=== PATIENT | female | born 1955 | race Caucasian/White ===

== ENCOUNTER 2018-10-14 19:40 | Emergency (ER) | payer BC, MEDICARE ==
[2018-10-14] MEDS ORDERED: Diphtheria,Pertussis(Acell),Tetanus Vaccine 0.5 ML Syringe IM ONE (20:02)
--- NOTE | 2018-10-14 20:10 | EDM.PDOC ---
ED HPI GENERAL MEDICAL PROBLEM - General Chief Complaint: Upper Extremity Injury/Pain Stated Complaint: PUT STAPLE THRU POINTER FINGER ON LEFT HAND Time Seen by Provider: 10/14/18 20:00 Source of Information: Reports: Patient History Limitations: Reports: No Limitations - History of Present Illness INITIAL COMMENTS - FREE TEXT/NARRATIVE: 63-year-old female presents for a laceration to her left hand second finger. Patient reports she is at work and put a staple through the distal end of her pointer finger. She removed the staple but feels that there is still a piece and it. She has a laceration through the distal tip of her finger. She reports that is numb at this time. she is unsure of her last tetanus. She is right-handed. Onset: Today Location: Reports: Upper Extremity, Left - Related Data Allergies Allergy/AdvReac Type Severity Reaction Status Date / Time No Known Allergies Allergy Verified 10/14/18 19:47 Home Meds: Home Meds Acetaminophen/HYDROcodone [Henderson 325-5 MG] 1 tab PO Q6H PRN #12 tablet 10/14/18 [Rx] Cephalexin [Keflex] 500 mg PO TID #21 capsule 10/14/18 [Rx] Pravastatin [Pravachol] 20 mg PO DAILY 10/14/18 [History] Past Medical History Cardiovascular History: Reports: High Cholesterol - Past Surgical History Musculoskeletal Surgical History: Reports: Other (See Below) Other Musculoskeletal Surgeries/Procedures:: ankle surgery, elbow surgery Social & Family History - Tobacco Use Smoking Status *Q: Never Smoker Second Hand Smoke Exposure: No - Caffeine Use Caffeine Use: Reports: Coffee - Recreational Drug Use Recreational Drug Use: No Review of Systems - Review of Systems Review Of Systems: See Below Musculoskeletal: Reports: Hand Pain Skin: Reports: Wound (right hand 2nd finger distal finger tip) Neurological: Reports: Numbness (right hand 2nd finger, distal finger tip) ED EXAM, GENERAL - Physical Exam Exam: See Below Exam Limited By: No Limitations General Appearance: Alert, WD/WN, No Apparent Distress Respiratory/Chest: No Respiratory Distress Cardiovascular: Normal Peripheral Pulses Peripheral Pulses: 2+: Radial (R) Extremities: Normal Capillary Refill, Other (1.5cm laceration to the right hand distal second finger underneath the distal nail ) Neurological: Alert, Oriented, Normal Cognition ED TRAUMA EXTREMITY PROCEDURES - Laceration/Wound Repair Right Distal Digit - 2nd (Index) Lac/Wound Length In cm: 1.5 Appearance: Subcutaneous, Linear, Clean Distal NVT: No Tendon Injury, Other (reports decreased sensation to light touch to) Anesthetic Type: Digital Local Anesthesia - Lidocaine (Xylocaine): 1% Plain Local Anesthesia - Bupivicaine (Marcaine): 0.5% Plain Local Anesthetic Volume: 5cc Skin Prep: Chlorhexidine (Hibiciens), Isopropyl Alcohol (Alcohol), Saline, Sterile Drape Closed With: Sutures Suture Size: 4-0 # of Sutures: 4 Suture Type: Nylon, Interrupted, Simple Sterile Dressing Applied: Nurse Tetanus Status Addressed: Yes Complications: No - Splinting Right 2nd Digit Splint Site: right hand distal 2nd finger Pre-Procedure NV Status: Normal Post-Procedure NV Status: Normal Splint Material: Aluminum-Foam Splint Design: Other (finger splint) Applied & Form Fitted By: Nurse Provider Post-Splint Application NV Check: NV Status Normal, Good Position Complications: No Course - Vital Signs Last Recorded V/S: Last Vital Signs Temp 98 F 10/14/18 19:45 Pulse 93 10/14/18 19:45 Resp 16 10/14/18 19:45 BP 173/114 H 10/14/18 19:45 Pulse Ox 95 10/14/18 19:45 - Orders/Labs/Meds Orders: Active Orders 24 hr Category Date Time Status Vaccines to be Administered [RC] PER UNIT ROUTINE Care 10/14/18 20:03 Active Meds: Medications Discontinued Medications Generic Name Dose Route Start Last Admin Trade Name Freq PRN Reason Stop Dose Admin Bupivacaine HCl 10 ml 10/14/18 21:49 10/14/18 23:00 Sensorcaine-Mpf 0.5% INJECT 10/14/18 21:50 10 ml ONETIME ONE Administration Cefazolin Sodium 1 gm 10/14/18 21:49 10/14/18 23:00 Ancef IM 10/14/18 21:50 1 gm ONETIME ONE Administration Diphtheria/Tetanus/Acell Pertussis 0.5 ml 10/14/18 20:02 10/14/18 20:17 Adacel IM 10/14/18 20:03 0.5 ml .ONCE ONE Administration Lidocaine HCl 50 ml 10/14/18 21:49 10/14/18 23:00 Xylocaine 1% INJECT 10/14/18 21:50 50 ml ONETIME ONE Administration - Radiology Interpretation Free Text/Narrative:: xray of the right hand 2nd finger shows a distal tuft fracture - Re-Assessments/Exams Free Text/Narrative Re-Assessment/Exam: 10/14/18 23:05 4 sutures placed to the right hand distal 2nd finger. Patient tolerated well. Will give ancef in ER and start on cephalexin as this is an open fracture. Recommend follow-up with [facility] as ortho will be out of town for the next week and this injury occurred at work. Will discharge home today. Discharge instructions as documented. Departure - Departure Time of Disposition: 23:09 Disposition: Home, Self-Care 01 Condition: Fair Clinical Impression: Laceration - Discharge Information *PRESCRIPTION DRUG MONITORING PROGRAM REVIEWED*: No *COPY OF PRESCRIPTION DRUG MONITORING REPORT IN PATIENT VI: No Prescriptions: Acetaminophen/HYDROcodone [Henderson 325-5 MG] 1 tab PO Q6H PRN #12 tablet PRN Reason: Pain Cephalexin [Keflex] 500 mg PO TID #21 capsule Instructions: Laceration Care, Adult, [id number] Referrals: Nguyen Schaffer PA [Primary Care Provider] - Shay Kim MD [Physician] - Forms: ED Department Discharge Additional Instructions: keep the finger splints on at all times. May remove for dressing changes and to monitor finger. monitor the finger for signs of infection such as increased swelilng, pus or redness. Present to clinic or the ER should these develop. Keflex as prescribed. 1 tab 3 times a day for 7 days. ice the finger frequently, 3 or 4 times a day for about 10 minutes. May take [id number] ibuprofen as needed for pain. For pain not relieved by probing may take Henderson one tablet every 6 hours. Henderson is habit-forming, take as few these as needed to control your pain. Do not drive or operate machinery within 10 hours of taking Henderson. Have the sutures removed in 10 days. The [facility] and is open 8 AM to 5 PM Friday to Friday and can remove the sutures for free. Call [phone] schedule the provider there. Dr. Julio loyd may also remove these for you. Recommend follow-up with Dr. Julio loyd on Friday. Call [phone] to schedule with him. Please return to the ER if your symptoms change or worsen. - My Orders Last 24 Hours: My Active Orders 10/14/18 20:03 Vaccines to be Administered [RC] PER UNIT ROUTINE - Assessment/Plan Last 24 Hours: My Active Orders 10/14/18 20:03 Vaccines to be Administered [RC] PER UNIT ROUTINE
[2018-10-14] MEDS ORDERED: Bupivacaine 0.5% 10 ML SDV INJECT ONE (21:49)
[2018-10-14] MEDS ORDERED: ceFAZolin 1 GM Vial IM ONE (21:49)
[2018-10-14] MEDS ORDERED: Lidocaine 1% 50 ML MDV INJECT ONE (21:49)
--- NOTE | 2018-10-15 08:30 | CR ---
Left second finger: Four views centered to the left second finger were obtained. Comparison: No previous study. Small distal tuft fracture is seen. Margins of the bone fragment are somewhat sclerotic and uncertain if this is old or acute. Mild joint space narrowing noted within the DIP joint. Soft tissue swelling is present. Impression: 1. Small distal tuft fracture off the distal second finger. Uncertain if this is old or acute. 2. Mild degenerative change and mild soft tissue swelling. Diagnostic code #3
== END 2018-10-14 23:25 | disposition home or self-care (01) ==
LOC: JD.ED 19:40
DX: S61.210A Laceration without foreign body of right index finger without damage to nail, initial encounter (principal); Z23 Encounter for immunization; E78.00 Pure hypercholesterolemia, unspecified; Z79.899 Other long term (current) drug therapy; W45.8XXA Other foreign body or object entering through skin, initial encounter
CPT/HCPCS: 12001; 73140; 90471; 90700; 99283; J0690; J2001; J3490

== ENCOUNTER 2019-10-09 16:31 | Emergency (ER) | payer MEDICARE, BC ==
--- NOTE | 2019-10-09 17:36 | EDM.PDOC ---
ED HPI GENERAL MEDICAL PROBLEM - General Chief Complaint: Lower Extremity Injury/Pain Stated Complaint: R LEG PAIN Time Seen by Provider: 10/09/19 16:52 Source of Information: Reports: Patient History Limitations: Reports: No Limitations - History of Present Illness INITIAL COMMENTS - FREE TEXT/NARRATIVE: The patient presents with right lower leg swelling and pain. This stared yesterday. She denies any injury. She has no history of DVT or PE. She has no fever, chills, cough, congestion, runny nose, chest pain, shortness of breath , abdominal pain, nausea or vomiting. Onset: Gradual Duration: Day(s): Location: Reports: Lower Extremity, Right (calf) Quality: Reports: Ache Severity: Mild Improves with: Reports: None Worsens with: Reports: None Associated Symptoms: Reports: No Other Symptoms Right Lower Leg Pain Score (Numeric/FACES): 8 - Related Data Allergies Allergy/AdvReac Type Severity Reaction Status Date / Time No Known Allergies Allergy Verified 10/09/19 16:46 Home Meds: Home Meds Pravastatin [Pravachol] 20 mg PO DAILY 10/14/18 [History] Past Medical History Cardiovascular History: Reports: High Cholesterol - Past Surgical History Musculoskeletal Surgical History: Reports: Other (See Below) Other Musculoskeletal Surgeries/Procedures:: ankle surgery, elbow surgery Social & Family History - Tobacco Use Smoking Status *Q: Never Smoker - Caffeine Use Caffeine Use: Reports: Coffee - Recreational Drug Use Recreational Drug Use: No Review of Systems - Review of Systems Review Of Systems: See Below Constitutional: Reports: No Symptoms Eyes: Reports: No Symptoms Ears: Reports: No Symptoms Nose: Reports: No Symptoms Mouth/Throat: Reports: No Symptoms Respiratory: Reports: No Symptoms Cardiovascular: Reports: No Symptoms GI/Abdominal: Reports: No Symptoms Genitourinary: Reports: No Symptoms Musculoskeletal: Reports: Other (Pain and swelling to the right calf) ED EXAM, GENERAL - Physical Exam Exam: See Below Exam Limited By: No Limitations General Appearance: Alert, No Apparent Distress Ears: Normal External Exam Nose: Normal Inspection Head: Atraumatic, Normocephalic Neck: Normal Inspection Respiratory/Chest: No Respiratory Distress, Lungs Clear, Normal Breath Sounds Cardiovascular: Regular Rate, Rhythm, No Edema, No Murmur GI/Abdominal: Soft, Non-Tender, No Organomegaly, No Mass Extremities: Other (Mild pain upon palpation with mild edema to the right calf. Good sensation and pulses distally.) Course - Vital Signs Last Recorded V/S: Last Vital Signs Temp 98.2 F 10/09/19 16:44 Pulse 80 10/09/19 16:44 Resp 16 10/09/19 16:44 BP 163/116 H 10/09/19 16:44 Pulse Ox 96 10/09/19 16:44 - Orders/Labs/Meds Orders: Active Orders 24 hr Category Date Time Status VL Duplex Lwr Ext Veins Ltd Rt [US] Stat Exams 10/09/19 17:09 Ordered - Re-Assessments/Exams Free Text/Narrative Re-Assessment/Exam: 10/09/19 17:36 I ordered an US of her leg. 10/09/19 19:09 Her US looks good. I will discharge her home. Departure - Departure Time of Disposition: 19:15 Disposition: Home, Self-Care 01 Condition: Good Clinical Impression: Right leg pain - Discharge Information *PRESCRIPTION DRUG MONITORING PROGRAM REVIEWED*: Not Applicable *COPY OF PRESCRIPTION DRUG MONITORING REPORT IN PATIENT VI: Not Applicable Referrals: PCP,None [Primary Care Provider] - Forms: ED Department Discharge Additional Instructions: Take motrin or tylenol for pain. Elevate your leg at night when resting. Please return if you are worse. Sepsis Event Note - Evaluation Sepsis Screening Result: No Definite Risk - Focused Exam Vital Signs: Vital Signs Temp Pulse Resp BP Pulse Ox 10/09/19 16:44 98.2 F 80 16 163/116 H 96 Date Exam was Performed: 10/09/19 Time Exam was Performed: 19:09 - My Orders Last 24 Hours: My Active Orders 10/09/19 17:09 VL Duplex Lwr Ext Veins Ltd Rt [US] Stat - Assessment/Plan Last 24 Hours: My Active Orders 10/09/19 17:09 VL Duplex Lwr Ext Veins Ltd Rt [US] Stat
--- NOTE | 2019-10-09 19:23 | US ---
Right lower extremity deep venous ultrasound: Duplex and color Doppler evaluation was obtained of the right common femoral, proximal greater saphenous, superficial femoral, popliteal, posterior tibial and peroneal veins. Additional real-time images were obtained of the proximal calf in area described as painful. Findings: Normal phasic flow, augmentation and compression is seen. No ultrasound finding is seen within the proximal left calf region. Impression: 1. No evidence of deep venous thrombosis. Diagnostic code #1 This report was dictated in MDT
== END 2019-10-09 19:21 | disposition home or self-care (01) ==
LOC: JD.ED 16:31
DX: M79.661 Pain in right lower leg (principal); E78.00 Pure hypercholesterolemia, unspecified; Z79.899 Other long term (current) drug therapy
CPT/HCPCS: 93971-26-RT; 93971-RT; 99282; 99283-25

== ENCOUNTER 2020-06-30 06:57 | Day surgery (SDC) | payer MEDICARE, BC ==
--- NOTE | 2020-06-29 12:08 | PCM.PREANE ---
Preanesthetic Assessment - Procedure Proposed Procedure: Total Vaginal Hysterectomy, bilateral salpingectomy, A/P repair. - Anesthesia/Transfusion/Family Hx Anesthesia History: Prior Anesthesia Without Reaction Family History of Anesthesia Reaction: No Transfusion History: No Prior Transfusion(s) Intubation History: Unknown - Review of Systems General: No Symptoms Pulmonary: No Symptoms (ETOH: rarely) Cardiovascular: No Symptoms (Elevated cholesterol) Gastrointestinal: No Symptoms (GERD-controlled) Neurological: No Symptoms Other: Reports: None - Physical Assessment NPO Status Date: 06/29/20 NPO Status Time: 22:30 Vital Signs: HR:64 Sat:95% Temp:98.5 B/P:140/92 Resp:16 Height: 1.6 m Weight: 74.389 kg ASA Class: 2 Mental Status: Alert & Oriented x3 Airway Class: Mallampati = 2 Dentition: Reports: Normal Dentition, [place](s), Caries Thyro-Mental Finger Breadths: 3 Mouth Opening Finger Breadths: 3 ROM/Head Extension: Full Lungs: Clear to Auscultation, Normal Respiratory Effort Cardiovascular: Regular Rate, Regular Rhythm, No Murmurs - Lab Values: All labs reviewed and noted and within acceptable ranges to proceed with scheduled procedure. - Imaging/EKG Impressions: Echocardiogram: EF= 60-65%, EKG: SR rate= 6i5, left ventricular hypertrophy, LAD, consider left anterior fascicular block - Allergies Allergies/Adverse Reactions: Allergies Allergy/AdvReac Type Severity Reaction Status Date / Time No Known Allergies Allergy Verified 06/29/20 08:31 - Anesthesia Plan Pre-Op Medication Ordered: None - Acknowledgements Anesthesia Type Planned: General Anesthesia Pt an Appropriate Candidate for the Planned Anesthesia: Yes Alternatives and Risks of Anesthesia Discussed w Pt/Guardian: Yes Pt/Guardian Understands and Agrees with Anesthesia Plan: Yes PreAnesthesia Questionnaire HEENT History: Reports: None Cardiovascular History: Reports: High Cholesterol Respiratory History: Reports: None Gastrointestinal History: Reports: Other (See Below) Other Gastrointestinal History: acid reflux, dysphagia Genitourinary History: Reports: Other (See Below) Other Genitourinary History: elevated creatinine, cystocele, rectocele DISEASE EDUCATION SPECIALIST History: Reports: Other (See Below) Other OB/BYN History: postmenopausal, fibrous breast lumps Musculoskeletal History: Reports: Other (See Below) Other Musculoskeletal History: crush elbow injury, right toe pain Neurological History: Reports: None Psychiatric History: Reports: None Endocrine/Metabolic History: Reports: None Hematologic History: Reports: None Immunologic History: Reports: None Oncologic (Cancer) History: Reports: None Dermatologic History: Reports: Other (See Below) Other Dermatologic History: tinea corposis - Infectious Disease History Infectious Disease History: Reports: None - Past Surgical History Head Surgeries/Procedures: Reports: None HEENT Surgical History: Reports: Cataract Surgery Cardiovascular Surgical History: Reports: None Respiratory Surgical History: Reports: None GI Surgical History: Reports: Colonoscopy Female Surgical History: Reports: Breast Biopsy, Tubal Ligation Endocrine Surgical History: Reports: None Neurological Surgical History: Reports: None Musculoskeletal Surgical History: Reports: Other (See Below) Other Musculoskeletal Surgeries/Procedures:: right ankle surgery with hardware, bilateral great toe joint replacement, elbow surgery Dermatological Surgical History: Reports: None - SUBSTANCE USE Tobacco Use Status *Q: Never Tobacco User Recreational Drug Use History: No - HOME MEDS Home Medications: Home Meds Pravastatin [Pravachol] 20 mg PO DAILY 10/14/18 [History] Cholecalciferol (Vitamin D3) [Vitamin D3] 2,000 unit PO DAILY 06/29/20 [History] Multivitamin 1 tab PO DAILY 06/29/20 [History] Multivitamin with Minerals [Hair, Skin and Nails] 1 tab PO DAILY 06/29/20 [History] Omeprazole Magnesium [Prilosec Otc] 20 mg PO DAILY 06/29/20 [History] Ubidecarenone [Coq-10] 200 mg PO DAILY 06/29/20 [History] Vitamin B Complex [B Complex] 2 tab PO DAILY 06/29/20 [History] - CURRENT (IN HOUSE) MEDS Current Meds: Current Medications Lactated Ringer's (Ringers, Lactated) 1,000 mls @ 125 mls/hr IV ASDIRECTED SAEED Lidocaine/Sodium Bicarbonate (Buffered Lidocaine 1% In Ns 8.4%) 0.25 ml IDERM ONETIME PRN PRN Reason: Prior to IV Start Sodium Chloride (Saline Flush) 10 ml FLUSH ASDIRECTED PRN PRN Reason: Keep Vein Open
[~2020-06-30 06:57] MED LIST: Lidocaine 1%/Sod Bicarbonate in NS 8.4% 1 ML Syringe IDERM PRN; Sodium Chloride 0.9% 10 ML Syringe FLUSH PRN
[2020-06-30] MEDS ORDERED: Dexamethasone 4 MG/ML 5 ML MDV ONE (07:09)
[2020-06-30] MEDS ORDERED: Lidocaine 1% 4 ML ONE (07:09)
[2020-06-30] MEDS ORDERED: Lactated Ringers 1,000 ML ONE (07:09)
[2020-06-30] MEDS ORDERED: Rocuronium 50 MG/5 ML Vial ONE (07:09)
[2020-06-30] MEDS ORDERED: HYDROmorphone 0.5 MG/0.5 ML Syringe ONE ×2 (07:09→09:42)
[2020-06-30] MEDS ORDERED: Ondansetron 4 MG/2 ML SDV ONE (07:09)
[2020-06-30] MEDS ORDERED: ceFAZolin 1 GM Vial ONE (07:10)
[2020-06-30] MEDS ORDERED: fentaNYL 250 MCG/5 ML SDV ONE (07:10)
[2020-06-30] MEDS: Lactated Ringers 1,000 ML IV SCH ×2 (07:10→13:25)
[2020-06-30] MEDS ORDERED: Midazolam 1 MG/ML 2 ML SDV ONE (07:10)
[2020-06-30] MEDS ORDERED: Propofol 200 MG/20 ML SDV ONE (07:10)
[2020-06-30] MEDS ORDERED: Sodium Chloride 0.9% 50 ML SDV ONE (07:19)
[2020-06-30] MEDS ORDERED: Lidocaine 1% with EPINEPHrine 1:100,000 10 ML MDV ONE (07:26)
[2020-06-30] MEDS ORDERED: Ondansetron 4 MG/2 ML SDV IVPUSH PRN (08:39)
[2020-06-30] MEDS ORDERED: fentaNYL 100 MCG/2 ML SDV IVPUSH PRN (08:39)
[2020-06-30] MEDS ORDERED: diphenhydrAMINE 50 MG/ML SDV IVPUSH PRN (08:39)
[2020-06-30] MEDS ORDERED: HYDROmorphone 0.5 MG/0.5 ML Syringe IVPUSH PRN (08:39)
[2020-06-30] MEDS ORDERED: Albuterol 0.083% 2.5 MG/3 ML Neb Soln NEB PRN (08:39)
[2020-06-30] MEDS ORDERED: ePHEDrine 50 MG/ML SDV IVPUSH PRN (08:39)
[2020-06-30] MEDS ORDERED: Sodium Chloride 0.9% Inhalation Soln 3 ML Neb INH PRN (09:50)
[2020-06-30] MEDS ORDERED: Racepinephrine 2.25% 0.5 ML Neb Soln NEB PRN (09:50)
--- NOTE | 2020-06-30 10:16 | PCM.OPNOTE ---
- General Post-Op/Procedure Note Date of Surgery/Procedure: 06/30/20 Operative Procedure(s): Transvaginal hysterectomy with bilateral salpingectomy, anterior and posterior repair Findings: Normal-appearing cervix on exam with normal-appearing uterus. Distal portions of the fallopian tubes were normal on exam. Normal-appearing ovaries bilaterally. Grade 3-4 cystocele on initial evaluation with grade 2 uterine prolapse and grade 1-2 rectocele. Pre Op Diagnosis: Uterine prolapse, cystocele and rectocele Post-Op Diagnosis: Same Anesthesia Technique: General ET Tube Primary Surgeon: John Horne Anesthesia Provider: Consuelo Nj Torch Shearer: Gary Eisenberg Torch Shearer: Sondra Frias Reason Torch Shearer Was Necessary: Reduction of morbidity and mortality and patient safety Role of Torch Shearer: Retraction for visualization Pathology: Uterus, cervix and bilateral fallopian tubes Fluid Replacement, Intraop: 1,100 Output, Urine Amount: 175 EBL in mLs: 20 Complications: None Condition: Good Free Text/Narrative:: Procedure in detail: The patient was seen in the preoperative holding area and risks, benefits, indications, and alternatives of the procedure were reviewed with the patient and she desired to proceed with a trans vaginal hysterectomy and bilateral salpingectomy with anterior and posterior repair. Consents were reviewed. The patient was taken back to the operating room #2 in the main OR. The patient was given general anesthesia with an endotracheal tube that was placed without difficulty. The patient was placed in dorsal lithotomy position using yellowfin stirrups. She was prepped and draped in normal sterile fashion. A Nuñez catheter was placed without difficulty. A weighted speculum was placed into the vagina and the anterior lip of the cervix was grasped with the single-tooth tenaculum. A double-tooth tenaculum was used to grasp the entirety of the cervix the single-tooth tenaculum was removed. The cervix was injected circumferentially with 0.25% lidocaine with epinephrine. The cervix was circumferentially incised with a scalpel. The bladder was dissected off the pubovesical cervical fascia anteriorly with Wright scissors. The posterior cul-de-sac was entered sharply without difficulty using Wright scissors. An Enseal vessel sealing device was placed over the uterosacral ligaments on the patient's left side. These were cauterized and ligated with the Enseal vessel sealing device. This was repeated on the patient's right side. Hemostasis was assured. I then placed my finger around the uterine fundus and into the anterior cul-de-sac and the anterior cul-de-sac was then able to be entered using sharp dissection with Wright scissors. The cardinal ligaments were then clamped on both sides with Enseal vessel sealing device, cauterized and ligated with the device. The uterine arteries and broad ligament were then serially clamped with Enseal vessel sealing device, cauterized and ligated with the device on both sides. The cornua were clamped bilaterally with Enseal vessel sealing device, cauterized and ligated, and the uterus delivered. The right fallopian tube was then visualized and grasped using a Elif clamp and excised using Enseal vessel sealing device. This was repeated on the left side with grasping of the fallopian tube with a Pearland clamp and excised using Enseal vessel sealing device. The posterior vaginal cuff was closed with running locked sutures of 0-Monocryl. Attention was then turned to the anterior and posterior repair portion of the surgery. There was noted to be a grade 3-4 cystocele and grade 2 rectocele. The vaginal mucosa overlying the bladder was grasped using Allis clamps and was injected using 0.25% lidocaine with epinephrine. The mucosa was then excised in a triangular fashion using a scalpel and Wright scissors. The lateral sides of the bladder the mucosa was undermined using Metzenbaum scissors. The vesicovaginal fascia was then reapproximated using 0-Monocryl suture with box sutures. The edges of the vaginal mucosa was trimmed further using Metzenbaum scissors. The incision was closed using 3-0 Monocryl sutures in a running locked fashion. The vaginal cuff was then closed with interrupted [id number]-twzed sutures in a vertical fashion. The rectal vaginal mucosa was then grasped using Allis clamps and injected with 0.25% lidocaine with epinephrine and this was excised using a scalpel and wright scissors. The mucosa was dissected off of the underlying rectum and the rectovaginal fascia was reapproximated using box sutures of 0-Monocryl suture. The incision was then closed using 3-0 Monocryl suture in a running locked fasihion to the hymenal ring and then the remaining portion was closed in running fashion. Vaginal exam had good support of the bladder and rectum. The procedure was complete at this time. All instruments were removed from the vagina. The Nuñez catheter was removed prior to waking the patient up from anesthesia. The patient was awoken and taken to the PACU for recovery in stable condition. Sponge, lap, needle, and instrument counts were correct x 2. John Horne MD 10:21 AM 06/30/2020
--- NOTE | 2020-06-30 10:32 | PCM.POSTAN ---
POST ANESTHESIA ASSESSMENT - MENTAL STATUS Mental Status: Alert - VITAL SIGNS Vital Signs: Last Vital Signs Temp 97.5 06/30/20 1014 Pulse 73 06/30/20 1014 Resp 14 06/30/20 1014 BP 127/86 06/30/20 1014 Pulse Ox 93% 06/30/20 1014 - RESPIRATORY Respiratory Status: Respiratory Rate WNL, Airway Patent, O2 Saturation Stable, Supplemental Oxygen - CARDIOVASCULAR CV Status: Pulse Rate WNL, Blood Pressure Stable - GASTROINTESTINAL GI Status: No Symptoms - POST OP HYDRATION Hydration Status: Adequate & Stable
--- NOTE | 2020-06-30 10:55 | PCM48HPAN ---
Post Anesthesia Note - EVALUATION WITHIN 48HRS OF ANESTHETIC Vital Signs in Normal Range: Yes Patient Participated in Evaluation: Yes Respiratory Function Stable: Yes Airway Patent: Yes Cardiovascular Function Stable: Yes Hydration Status Stable: Yes Pain Control Satisfactory: Yes Nausea and Vomiting Control Satisfactory: Yes Mental Status Recovered: Yes Vital Signs: Last Vital Signs Temp 36.8 C 06/30/20 10:45 Pulse 60 06/30/20 10:45 Resp 12 06/30/20 10:45 BP 126/78 06/30/20 10:45 Pulse Ox 93 L 06/30/20 10:45
[2020-06-30] MEDS: Acetaminophen/oxyCODONE 325-5 MG Tab PO PRN (11:15)
[2020-07-01] MEDS: Acetaminophen/oxyCODONE 325-5 MG Tab PO PRN ×2 (01:49→08:50)
--- NOTE | 2020-07-01 09:32 | PCM.SN.2 ---
- Free Text/Narrative Note: Post Op Note Subjective: Patient reports feeling well overall. Pain minimal and controlled with oral medications. Reports that she is only having some mild cramping. Tolerating regular diet. Reports passing flatus. Voiding without difficulty since last evening. Ambulating without difficulty. Objective: Vitals Vital Signs - 24 hr 06/30/20 06/30/20 06/30/20 10:14 10:17 10:30 Temperature Temperature [ 36.6 C Temporal] Pulse, Peripheral Pulse, 73 62 Peripheral [ Left Pulse Oximetry] Respiratory 14 14 Rate Blood Pressure Blood Pressure 127/86 122/78 [Right Upper Arm] O2 Sat by Pulse 93 L 97 Oximetry O2 Sat by Pulse 91 L Oximetry [ Nasal Cannula] 06/30/20 06/30/20 06/30/20 10:34 10:45 11:00 Temperature Temperature [ 36.8 C 37.0 C Temporal] Pulse, Peripheral Pulse, 60 63 Peripheral [ Left Pulse Oximetry] Respiratory 12 13 Rate Blood Pressure Blood Pressure 126/78 133/80 [Right Upper Arm] O2 Sat by Pulse 93 L 95 Oximetry O2 Sat by Pulse 97 Oximetry [ Nasal Cannula] 06/30/20 06/30/20 06/30/20 11:15 11:45 12:30 Temperature Temperature [ 36.9 C Temporal] Pulse, Peripheral Pulse, 68 60 60 Peripheral [ Left Pulse Oximetry] Respiratory 14 16 16 Rate Blood Pressure Blood Pressure 135/80 121/71 121/71 [Right Upper Arm] O2 Sat by Pulse 93 L 94 L 94 L Oximetry O2 Sat by Pulse Oximetry [ Nasal Cannula] 06/30/20 06/30/20 06/30/20 13:00 13:30 14:00 Temperature Temperature [ 36.4 C 36.8 C Temporal] Pulse, Peripheral Pulse, 68 72 Peripheral [ Left Pulse Oximetry] Respiratory 18 14 16 Rate Blood Pressure Blood Pressure 127/75 116/79 114/83 [Right Upper Arm] O2 Sat by Pulse 94 L 92 L 96 Oximetry O2 Sat by Pulse Oximetry [ Nasal Cannula] 06/30/20 06/30/20 06/30/20 14:41 15:05 15:06 Temperature Temperature [ Temporal] Pulse, 61 77 53 L Peripheral Pulse, Peripheral [ Left Pulse Oximetry] Respiratory Rate Blood Pressure 113/78 134/88 134/88 Blood Pressure [Right Upper Arm] O2 Sat by Pulse 93 L 87 L 92 L Oximetry O2 Sat by Pulse Oximetry [ Nasal Cannula] 06/30/20 06/30/20 06/30/20 15:11 15:20 15:32 Temperature Temperature [ Temporal] Pulse, 56 L 85 57 L Peripheral Pulse, Peripheral [ Left Pulse Oximetry] Respiratory Rate Blood Pressure 122/75 Blood Pressure [Right Upper Arm] O2 Sat by Pulse 90 L 89 L 98 Oximetry O2 Sat by Pulse Oximetry [ Nasal Cannula] 06/30/20 06/30/20 06/30/20 16:01 20:55 22:07 Temperature 36.8 C Temperature [ Temporal] Pulse, 62 75 Peripheral Pulse, Peripheral [ Left Pulse Oximetry] Respiratory Rate Blood Pressure 126/81 149/88 H 130/83 Blood Pressure [Right Upper Arm] O2 Sat by Pulse 95 93 L Oximetry O2 Sat by Pulse Oximetry [ Nasal Cannula] Gen: No acute distress, alert and oriented Lungs: Clear to auscultation bilaterally Heart: Regular rate and rhythm Abdomen: Soft, minimal appropriate tenderness, nondistended, bowel sounds positive Assesment/Plan: 65-year-old female status post transvaginal hysterectomy, bilateral nael pingectomy with anterior and posterior repair POD #1 Doing well Patient with urinary retention after surgery and was kept and monitored overnight. Patient was able to urinate without difficulty starting around midnight. She has been able to urinate without difficulty throughout the remainder of the night. No concerns at this time Routine post op care Monitor vitals Discharge home today John Horne MD 9:31 AM 07/01/2020
--- NOTE | 2020-07-01 09:37 | PCM.DCSUM1 ---
Discharge Summary - Hospital Course Free Text/Narrative:: - General Post-Op/Procedure Note Date of Surgery/Procedure: 06/30/20 Operative Procedure(s): Transvaginal hysterectomy with bilateral salpingectomy, anterior and posterior repair Findings: Normal-appearing cervix on exam with normal-appearing uterus. Distal portions of the fallopian tubes were normal on exam. Normal-appearing ovaries bilaterally. Grade 3-4 cystocele on initial evaluation with grade 2 uterine prolapse and grade 1-2 rectocele. Pre Op Diagnosis: Uterine prolapse, cystocele and rectocele Post-Op Diagnosis: Same Anesthesia Technique: General ET Tube Primary Surgeon: John Horne Anesthesia Provider: Consuelo Nj Coal Drier Operator: Gary Eisenberg Coal Drier Operator: Sondra Frias Reason Coal Drier Operator Was Necessary: Reduction of morbidity and mortality and patient safety Role of Coal Drier Operator: Retraction for visualization Pathology: Uterus, cervix and bilateral fallopian tubes Fluid Replacement, Intraop: 1,100 Output, Urine Amount: 175 EBL in mLs: 20 Complications: None Condition: Good Free Text/Narrative:: Procedure in detail: The patient was seen in the preoperative holding area and risks, benefits, indications, and alternatives of the procedure were reviewed with the patient and she desired to proceed with a trans vaginal hysterectomy and bilateral salpingectomy with anterior and posterior repair. Consents were reviewed. The patient was taken back to the operating room #2 in the main OR. The patient was given general anesthesia with an endotracheal tube that was placed without difficulty. The patient was placed in dorsal lithotomy position using yellowfin stirrups. She was prepped and draped in normal sterile fashion. A Nuñez catheter was placed without difficulty. A weighted speculum was placed into the vagina and the anterior lip of the cervix was grasped with the single-tooth tenaculum. A double-tooth tenaculum was used to grasp the entirety of the cervix the single-tooth tenaculum was removed. The cervix was injected circumferentially with 0.25% lidocaine with epinephrine. The cervix was circumferentially incised with a scalpel. The bladder was dissected off the pubovesical cervical fascia anteriorly with Wright scissors. The posterior cul-de-sac was entered sharply without difficulty using Wright scissors. An Enseal vessel sealing device was placed over the uterosacral ligaments on the patient's left side. These were cauterized and ligated with the Enseal vessel sealing device. This was repeated on the patient's right side. Hemostasis was assured. I then placed my finger around the uterine fundus and into the anterior cul-de-sac and the anterior cul-de-sac was then able to be entered using sharp dissection with Wright scissors. The cardinal ligaments were then clamped on both sides with Enseal vessel sealing device, cauterized and ligated with the device. The uterine arteries and broad ligament were then serially clamped with Enseal vessel sealing device, cauterized and ligated with the devic e on both sides. The cornua were clamped bilaterally with Enseal vessel sealing device, cauterized and ligated, and the uterus delivered. The right fallopian tube was then visualized and grasped using a Tow clamp and excised using Enseal vessel sealing device. This was repeated on the left side with grasping of the fallopian tube with a Tow clamp and excised using Enseal vessel sealing device. The posterior vaginal cuff was closed with running locked sutures of 0-Monocryl. Attention was then turned to the anterior and posterior repair portion of the surgery. There was noted to be a grade 3-4 cystocele and grade 2 rectocele. The vaginal mucosa overlying the bladder was grasped using Allis clamps and was injected using 0.25% lidocaine with epinephrine. The mucosa was then excised in a triangular fashion using a scalpel and Wright scissors. The lateral sides of the bladder the mucosa was undermined using Metzenbaum scissors. The vesicovaginal fascia was then reapproximated using 0-Monocryl suture with box sutures. The edges of the vaginal mucosa was trimmed further using Metzenbaum scissors. The incision was closed using 3-0 Monocryl sutures in a running locked fashion. The vaginal cuff was then closed with interrupted [id number] sutures in a vertical fashion. The rectal vaginal mucosa was then grasped using Allis clamps and injected with 0.25% lidocaine with epinephrine and this was excised using a scalpel and wright scissors. The mucosa was dissected off of the underlying rectum and the rectovaginal fascia was reapproximated using box sutures of 0-Monocryl suture. The incision was then closed using 3-0 Monocryl suture in a running locked fasihion to the hymenal ring and then the remaining portion was closed in running fashion. Vaginal exam had good support of the bladder and rectum. The procedure was complete at this time. All instruments were removed from the vagina. The Nuñez catheter was removed prior to waking the patient up from anesthesia. The patient was awoken and taken to the PACU for recovery in stable condition. Sponge, lap, needle, and instrument counts were correct x 2. Diagnosis: Stroke: No - Discharge Data Discharge Date: 07/01/20 Discharge Disposition: Home, Self-Care 01 Condition: Good - Referral to Home Health Primary Care Physician: Pooja Ellis PA-C - Discharge Diagnosis/Problem(s) (1) Uterine prolapse SNOMED Code(s): 98330092 ICD Code: N81.4 - UTEROVAGINAL PROLAPSE, UNSPECIFIED Status: Acute Current Visit: Yes (2) Cystocele with prolapse SNOMED Code(s): 928806154 ICD Code: N81.4 - UTEROVAGINAL PROLAPSE, UNSPECIFIED Status: Acute Current Visit: Yes (3) Rectocele SNOMED Code(s): 3027504 ICD Code: N81.6 - RECTOCELE Status: Acute Current Visit: Yes (4) S/P vaginal hysterectomy SNOMED Code(s): 985959205, 365047917 ICD Code: Z90.710 - ACQUIRED ABSENCE OF BOTH CERVIX AND UTERUS Status: Acute Current Visit: Yes (5) Status post bilateral salpingectomy SNOMED Code(s): 118397952, 103385890 ICD Code: Z90.79 - ACQUIRED ABSENCE OF OTHER GENITAL ORGAN(S) Status: Acute Current Visit: Yes - Patient Summary/Data Operative Procedure(s) Performed: Transvaginal hysterectomy with bilateral salpingectomy, anterior and posterior repair Complications: Urinary retention during postoperative timeframe Consults: None Hospital Course: Jackelyn Horton was admitted for scheduled surgery with transvaginal hysterectomy, bilateral salpingectomy, anterior and posterior repair. She was taken back to the OR and given general endotracheal tube with general anesthesia. She was given Ancef 2 g IV for antibiotic prophylaxis. She was prepped and draped in the normal fashion. She underwent surgery and had a transvaginal hysterectomy, bilateral salpingectomy, anterior and posterior repair. There were no complications with the procedure. Please see the operative report for full details. Her post operative course was complicated by urinary retention and she was unable to void throughout the initial postoperative timeframe. Her pain was well controlled and she had minimal lochia. She was ambulating, tolerating a regular diet and voiding normally. She was kept for extended floor recovery due to the urinary retention. In the evening of POD #0 she had a straight catheterization of the bladder with return of 700 mL of urine. Patient was able to void after this straight catheterization approximately 3 to 4 hours later. She was able to void large amount of urine after the initial void. She was able to continue to void without difficulty throughout the remainder of the evening and into morning. She was passing flatus and has not had a bowel movement. She desired to be discharged home on the morning of POD #1. - Patient Instructions Diet: Regular Diet as Tolerated Activity: Apply Ice, As Tolerated, No Lifting Over 20 Pounds Activity, Other: Nothing in the vagina for 6 weeks Driving: Do Not Drive (While taking narcotic medications or having significant pain) Showering/Bathing: May Shower, No Tub Bathing/Swimming (For 2 weeks) Notify Provider of: Fever, Increased Pain, Swelling and Redness, Drainage, Nausea and/or Vomiting Other/Special Instructions: Please contact your physician's office if you have heavy vaginal bleeding enough to soak a pad in less than an hour. - Discharge Plan *PRESCRIPTION DRUG MONITORING PROGRAM REVIEWED*: Yes *COPY OF PRESCRIPTION DRUG MONITORING REPORT IN PATIENT VI: No Prescriptions/Med Rec: Docusate Sodium [Colace] 100 mg PO BID #60 capsule Ibuprofen 600 mg PO Q6H PRN #60 tablet PRN Reason: Pain Acetaminophen/oxyCODONE [Percocet 325-5 MG] 1 - 2 each PO Q6H PRN #30 tab PRN Reason: Pain Home Medications: Home Meds Pravastatin [Pravachol] 20 mg PO DAILY 10/14/18 [History] Cholecalciferol (Vitamin D3) [Vitamin D3] 2,000 unit PO DAILY 06/29/20 [History] Multivitamin 1 tab PO DAILY 06/29/20 [History] Multivitamin with Minerals [Hair, Skin and Nails] 1 tab PO DAILY 06/29/20 [History] Omeprazole Magnesium [Prilosec Otc] 20 mg PO DAILY 06/29/20 [History] Ubidecarenone [Coq-10] 200 mg PO DAILY 06/29/20 [History] Vitamin B Complex [B Complex] 2 tab PO DAILY 06/29/20 [History] Acetaminophen/oxyCODONE [Percocet 325-5 MG] 1 - 2 each PO Q6H PRN #30 tab 06/30/20 [Rx] Docusate Sodium [Colace] 100 mg PO BID #60 capsule 06/30/20 [Rx] Ibuprofen 600 mg PO Q6H PRN #60 tablet 06/30/20 [Rx] Acetaminophen/oxyCODONE [Percocet 325-5 MG] 1 - 2 tab PO Q6H PRN tablet 07/01/20 [Rx] Patient Handouts: Docusate Sodium; Senna tablets or capsules, Anterior and Posterior Colporrhaphy, Care After, Acetaminophen; Oxycodone tablets, Vaginal Hysterectomy, Care After Referrals: John Horne MD [Physician] - 07/13/20 9:30 am (Follow-up in 2 weeks for routine postoperative visit or earlier as needed. Follow up appointment scheduled for July at 9:30 am ) - Discharge Summary/Plan Comment DC Time >30 min.: No - Patient Data Vitals - Most Recent: Last Vital Signs Temp 36.8 C 06/30/20 20:55 Pulse 75 06/30/20 20:55 Resp 16 06/30/20 14:00 BP 130/83 06/30/20 22:07 Pulse Ox 93 L 06/30/20 20:55 Weight - Most Recent: 74.389 kg I&O - Last 24 hours: Intake & Output 06/30/20 07/01/20 07/01/20 22:59 06:59 14:59 Output Total 700 Balance -700 Med Orders - Current: Current Medications Bethanechol Chloride (Urecholine) 10 mg PO Q6H SAEED Last Admin: 07/01/20 08:50 Dose: 10 mg Documented by: Lidocaine/Sodium Bicarbonate (Buffered Lidocaine 1% In Ns 8.4%) 0.25 ml IDERM ONETIME PRN PRN Reason: Prior to IV Start Oxycodone/Acetaminophen (Percocet 325-5 Mg) 1 - 2 tab PO Q6H PRN PRN Reason: Pain Last Admin: 07/01/20 08:50 Dose: 1 tab Documented by: Racepinephrine (S-2 2.25%) 0.5 ml NEB ONETIME PRN PRN Reason: stridor Sodium Chloride (Saline Flush) 10 ml FLUSH ASDIRECTED PRN PRN Reason: Keep Vein Open Sodium Chloride (Sodium Chloride 0.9%) 3 ml INH ASDIRECTED PRN PRN Reason: mix with racepinephrine neb Discontinued Medications Albuterol (Proventil Neb Soln) 2.5 mg NEB ONETIME PRN PRN Reason: bronchodilation Stop: 06/30/20 23:00 Bethanechol Chloride (Urecholine) 10 mg PO ONETIME ONE Stop: 06/30/20 13:13 Last Admin: 06/30/20 13:25 Dose: 10 mg Documented by: Cefazolin Sodium (Ancef) Confirm Administered Dose 2 gm .ROUTE .STK-MED ONE Stop: 06/30/20 07:11 Dexamethasone (Dexamethasone) Confirm Administered Dose 20 mg .ROUTE .STK-MED ONE Stop: 06/30/20 07:10 Diphenhydramine HCl (Benadryl) 25 mg IVPUSH Q6H PRN PRN Reason: pruritis Stop: 06/30/20 23:00 Ephedrine Sulfate (Ephedrine Sulfate) 5 mg IVPUSH ASDIRECTED PRN PRN Reason: Hypotension Stop: 06/30/20 23:00 Fentanyl (Sublimaze) Confirm Administered Dose 250 mcg .ROUTE .STK-MED ONE Stop: 06/30/20 07:11 Fentanyl (Sublimaze) 50 mcg IVPUSH Q20M PRN PRN Reason: Pain Stop: 06/30/20 23:00 Glycopyrrolate (Robinul) Confirm Administered Dose 0.8 mg .ROUTE .STK-MED ONE Stop: 06/30/20 09:06 Hydromorphone HCl (Dilaudid) Confirm Administered Dose 0.5 mg .ROUTE .STK-MED ONE Stop: 06/30/20 07:10 Hydromorphone HCl (Dilaudid) 0.5 mg IVPUSH Q10M PRN PRN Reason: Pain (severe 7-10) Stop: 06/30/20 23:00 Hydromorphone HCl (Dilaudid) Confirm Administered Dose 0.5 mg .ROUTE .STK-MED ONE Stop: 06/30/20 09:43 Lactated Ringer's (Ringers, Lactated) 1,000 mls @ 125 mls/hr IV ASDIRECTED SAEED Last Admin: 06/30/20 13:25 Dose: 125 mls/hr Documented by: Lidocaine HCl (Xylocaine-Mpf 1%) Confirm Administered Dose 4 mls @ as directed .ROUTE .STK-MED ONE Stop: 06/30/20 07:10 Lactated Ringer's (Ringers, Lactated) Confirm Administered Dose 1,000 mls @ as directed .ROUTE .STK-MED ONE Stop: 06/30/20 07:10 Lidocaine/Epinephrine (Xylocaine 1% With Epinephrine 1:100,000) 10 ml .ROUTE .STK-MED ONE Stop: 06/30/20 07:27 Last Admin: 06/30/20 09:03 Dose: 10 ml Documented by: Midazolam HCl (Versed 1 Mg/Ml) Confirm Administered Dose 2 mg .ROUTE .STK-MED ONE Stop: 06/30/20 07:11 Miscellaneous Medication (Phenylephrine 1 Mg/10 Ml-Ns) Confirm Administered Dose 1 mg .ROUTE .STK-MED ONE Stop: 06/30/20 08:27 Miscellaneous Medication (Phenylephrine 1 Mg/10 Ml-Ns) 0 mg IVPUSH ONETIME ONE Stop: 06/30/20 08:40 Neostigmine Methylsulfate (Neostigmine Methylsulfate) Confirm Administered Dose 5 mg .ROUTE .STK-MED ONE Stop: 06/30/20 09:06 Ondansetron HCl (Zofran) Confirm Administered Dose 4 mg .ROUTE .STK-MED ONE Stop: 06/30/20 07:10 Ondansetron HCl (Zofran) 4 mg IVPUSH ONETIME PRN PRN Reason: Nausea/Vomiting Stop: 06/30/20 23:00 Propofol (Diprivan 20 Ml) Confirm Administered Dose 200 mg .ROUTE .STK-MED ONE Stop: 06/30/20 07:11 Rocuronium [place] (Zemuron) Confirm Administered Dose 50 mg .ROUTE .STK-MED ONE Stop: 06/30/20 07:10 Sodium Chloride (Normal Saline) Confirm Administered Dose 50 ml .ROUTE .STK-MED ONE Stop: 06/30/20 07:20 Last Admin: 06/30/20 08:34 Dose: 40 ml Documented by:
== END 2020-07-01 10:25 | disposition home or self-care (01) ==
LOC: JD.SDS 06:57 → JD.MS 14:47 → JD.SDS 07-01 10:25
PROVIDERS: ATTEND Obstetrics & Gynecology
DX: N81.4 Uterovaginal prolapse, unspecified (principal); N87.9 Dysplasia of cervix uteri, unspecified; E78.2 Mixed hyperlipidemia; K21.9 Gastro-esophageal reflux disease without esophagitis; Z79.899 Other long term (current) drug therapy; Z98.890 Other specified postprocedural states
CPT/HCPCS: 36415; 51798; 57260; 58262; 81003; 85025; 86850; 86900; 86901; 88305; A9270; J0690; J1100; J1170; J2250; J2370; J2405; J2704; J2710; J3010; J7120; 00944; 51701

== ENCOUNTER 2023-09-23 06:59 | Day surgery (SDC) | payer MEDICARE, BC ==
[~2023-09-23 06:59] MED LIST changes: -Lidocaine 1%/Sod Bicarbonate in NS 8.4% 1 ML Syringe IDERM PRN; +Sodium Chloride 0.9% 10 ML Syringe FLUSH SCH
[2023-09-23] MEDS: Lactated Ringers 1,000 ML IV SCH (07:30)
[2023-09-23] MEDS ORDERED: Propofol 200 MG/20 ML SDV ONE (07:34)
[2023-09-23] MEDS ORDERED: Lidocaine 2% 5 ML SDV ONE (07:34)
[2023-09-23] MEDS ORDERED: Lidocaine 0.5% 50 ML SDV ONE (07:34)
[2023-09-23] MEDS ORDERED: fentaNYL 100 MCG/2 ML SDV IVPUSH PRN (08:02)
[2023-09-23] MEDS ORDERED: Ondansetron 4 MG/2 ML SDV IVPUSH PRN (08:02)
== END 2023-09-23 08:45 | disposition home or self-care (01) ==
LOC: JD.SDS 06:59
PROVIDERS: ATTEND Surgery
DX: Z12.11 Encounter for screening for malignant neoplasm of colon (principal); I10 Essential (primary) hypertension; E78.2 Mixed hyperlipidemia; Z79.899 Other long term (current) drug therapy
CPT/HCPCS: G0121; J1596; J2704; J7120; J3490